=== PATIENT | female | born 1995 | race Caucasian/White ===

== ENCOUNTER 2017-04-28 10:21 | Emergency (ER) | payer SELFPAY ==
[2017-04-28 12:01] LABS: NEGATIVE OBC STREP NEG; POSITIVE OBC STREP POS
== END 2017-04-28 11:57 | disposition home or self-care (01) ==
LOC: ER 10:21
DX: J06.9 Acute upper respiratory infection, unspecified (principal)
CPT/HCPCS: 87070; 87880; 99283